=== PATIENT | male | born 1965 | race Caucasian/White ===

== ENCOUNTER 2019-12-08 20:40 | Emergency (ER) | payer BC ==
[~2019-12-08] VITALS: Ht 182.9 cm; Wt 102.5 kg
[2019-12-08] MEDS ORDERED: CYCL-707 (23:17)
[2019-12-08] MEDS ORDERED: FLUO20CA22 (23:17)
[2019-12-08] MEDS ORDERED: DIPH50CA PO (23:17)
[2019-12-08] MEDS ORDERED: MELO7.5T35 (23:17)
[2019-12-08] MEDS ORDERED: EPIN0.3I11 (23:17)
[2019-12-08] MEDS ORDERED: predniSONE 20 MG TAB PO ONE (23:30)
[2019-12-08] MEDS ORDERED: FAMOTIDINE 20 MG TAB PO ONE (23:30)
[2019-12-08] MEDS ORDERED: PRED20TA PO (23:33)
[2019-12-08] MEDS ORDERED: BENA25CA4 PO (23:33)
[2019-12-08] MEDS ORDERED: PEPC1TAB5 PO (23:33)
[2019-12-08 23:48] VITALS: BP 123/87
== END 2019-12-08 23:50 | disposition home or self-care (01) ==
LOC: M ED 20:40
DX: T78.01XA Anaphylactic reaction due to peanuts, initial encounter (principal); Y92.9 Unspecified place or not applicable; Y93.9 Activity, unspecified; Z79.899 Other long term (current) drug therapy